=== PATIENT | female | born 1970 | race Hispanic/Latino ===

== ENCOUNTER 2017-08-19 21:23 | Emergency (ER) | payer OTHER ==
[2017-08-19 23:27] VITALS: RESP 17; O2SAT 98
[2017-08-20] MEDS ORDERED: Sodium Chloride 0.9% 1,000 ML IV SCH (00:15)
--- NOTE | 2017-08-20 00:16 | ED PDOC ---
HPI: Abdomen Time Seen by Provider: 08/20/17 00:13 Chief Complaint (Nursing): Abdominal Pain Chief Complaint (Provider): abdominal pain History Per: Patient (47 y/o female h/o DM here for evaluation of RUQ/ epigastric pain x 2 days associated with nausea/vomiting/diarrhea. Patient states she is on prilosec as a prophylactic measure but does not have any h/o ulcer/gastritis. No prior surgical hx.) Past Medical History Reviewed: Historical Data, Nursing Documentation, Vital Signs Vital Signs: Last Vital Signs Temp 98.1 F 08/20/17 06:18 Pulse 86 08/20/17 06:18 Resp 17 08/20/17 06:18 BP 144/85 08/20/17 06:18 Pulse Ox 98 08/21/17 03:42 - Medical History PMH: Diabetes - Family History Family History: States: No Known Family Hx - Home Medications Home Medications: Ambulatory Orders Medication Instructions Recorded Ondansetron ODT [Zofran ODT] 4 mg PO Q8 PRN #10 odt 08/20/17 - Allergies Allergies/Adverse Reactions: Allergies Allergy/AdvReac Type Severity Reaction Status Date / Time No Known Allergies Allergy Verified 08/19/17 23:27 Review of Systems ROS Statement: Except As Marked, All Systems Reviewed And Found Negative Gastrointestinal: Positive for: Abdominal Pain Physical Exam - Reviewed Nursing Documentation Reviewed: Yes Vital Signs Reviewed: Yes - Physical Exam Appears: Positive for: Well, Non-toxic, No Acute Distress Head Exam: Positive for: ATRAUMATIC, NORMAL INSPECTION, NORMOCEPHALIC Skin: Positive for: Normal Color, Warm, DRY Eye Exam: Positive for: EOMI, Normal appearance, PERRL ENT: Positive for: Normal ENT Inspection Neck: Positive for: Normal, Painless ROM Cardiovascular/Chest: Positive for: Regular Rate, Rhythm Respiratory: Positive for: CNT, Normal Breath Sounds Gastrointestinal/Abdominal: Positive for: Normal Exam, Bowel Sounds, Soft, Tenderness (RUQ/RLQ) Back: Positive for: Normal Inspection Extremity: Positive for: Normal ROM Neurologic/Psych: Positive for: Alert, Oriented - Laboratory Results Result Diagrams: 08/20/17 01:12 08/20/17 01:12 - ECG O2 Sat by Pulse Oximetry: 98 - Progress ED Course And Treament: dilaudid 0.5mg iv zofran 4mg iv x 1 dose NS 1 liter wide open Appendix: A normal appendix is identified. PELVIS: Bladder: The bladder is normal. Reproductive: The uterus is normal. ABDOMEN and PELVIS: Intraperitoneal space: Normal. No free air. No significant fluid collection. Bones/joints: No acute fracture. No dislocation. Soft tissues: Normal. Vasculature: Normal. No abdominal aortic aneurysm. Lymph nodes: Normal. No enlarged lymph nodes. IMPRESSION: 1. No acute abdominal pelvic pathology. Normal appendix. 2. Note that the gallbladder is incompletely evaluated with CT and if acute cholecystitis suspected a RIGHT upper quadrant ultrasound may be obtained for further evaluation. Thank you for allowing us to participate in the care of your patient. Dictated and Authenticated by: Ramez Pollock MD [facility] ultrasound: FINDINGS: Liver: Liver is echogenic appearance compatible with fatty liver. No intrahepatic bile duct dilation. Gallbladder: There is no cholelithiasis, stones, sludge or other gallbladder pathology. A negative sonographic Beltran sign is reported. Common bile duct: Unremarkable as visualized. No stones. No dilation. Pancreas: The pancreas is poorly-visualized due to overlying bowel gas. Right kidney: The RIGHT kidney measures 15 x 6.4 x 6.5 cm. No stones. No hydronephrosis. IMPRESSION: 1. Fatty liver. 2. No cholecystitis. Thank you for allowing us to participate in the care of your patient. Dictated and Authenticated by: Ramez Pollock MD 08/20/2017 2:41 AM Eastern Time ([place] & [place]) protonix 40 mg iv and bentyl 20 mg po ordered to assist with relief of persistent abd pain. 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 Seen by Dr. Zacarias. dilaudid 0.5mg iv x 2nd dose. Will repeat lactate after 2 Liters of hydration. Disposition - Clinical Impression Clinical Impression: Abdominal pain, Gastroenteritis - Patient ED Disposition Is Patient to be Admitted: No - Disposition Referrals: Titus Iraheta MD, PhD [Staff Provider] - Disposition: Routine/Home Disposition Time: 06:00 Condition: GOOD Prescriptions: Ondansetron ODT [Zofran ODT] 4 mg PO Q8 PRN #10 odt PRN Reason: Nausea/Vomiting Forms: [employer] ([place]), [facility] ED School/Work Excuse
[2017-08-20 01:19] LABS: BASO # 0.1 K/uL (0.0-0.2); BASO % 0.8 % (0.0-2.0); EOS # 0.1 K/uL (0.0-0.7); EOS % 1.8 % (0.0-4.0); HEMOGLOBIN 15.9 g/dL (12.0-16.0); LYMPH # 2.5 K/uL (1.0-4.3); LYMPH % 37.5 % (20.0-40.0); MEAN CELL VOLUME 84.7 fl (81.0-99.0); MEAN CORPUSCULAR HEMOGLOBIN 28.5 pg (27.0-31.0); MEAN CORPUSCULAR HGB CONC 33.7 g/dL (33.0-37.0); MEAN PLATELET VOLUME 7.9 fl (7.2-11.7); MONO # 0.6 K/uL (0.0-0.8); MONO % 8.8 % (0.0-10.0); NEUT # 3.4 K/uL (1.8-7.0); NEUT % 51.1 % (50.0-75.0); NRBC % 0.4 % (0.0-0.0); RBC 5.58 Mil/uL (3.80-5.20); WHITE BLOOD COUNT 6.6 K/uL (4.8-10.8)
[2017-08-20 01:28] LABS: ALB/GLOB RATIO 1.3 (1.0-2.1); ALBUMIN 4.3 g/dL (3.5-5.0); ALT/SGPT 79 U/L (9-52); AST/SGOT 48 U/L (14-36); BLOOD UREA NITROGEN 18 mg/dl (7-17); CALCIUM 10.2 mg/dL (8.4-10.2); GFR AFRICAN-AMERICAN > 60; GFR NON-AFRICAN AMERICAN > 60; LIPASE 79 U/L (23-300); MAGNESIUM 1.6 MG/DL (1.6-2.3)
[2017-08-20 01:33] LABS: VENOUS BLOOD GAS BASE EXCESS -0.3 mmol/L (0.0-2.0); VENOUS BLOOD GAS PCO2 38 mmHg (40-60); VENOUS BLOOD GAS PO2 47 mm/Hg (30-55); VENOUS BLOOD PH 7.41 (7.32-7.43)
[2017-08-20 01:35] LABS: SQUAMOUS EPITHIAL 3 /hpf (0-5); URINE BACTERIA RARE (<OCC); URINE BILIRUBIN NEGATIVE (NEGATIVE); URINE BLOOD NEGATIVE (NEGATIVE); URINE CLARITY CLOUDY (Clear); URINE COLOR AMBER (YELLOW); URINE GLUCOSE (UA) >=500 mg/dL (Normal); URINE LEUKOCYTE ESTERASE NEG Leu/uL (Negative); URINE NITRATE NEGATIVE (NEGATIVE); URINE PROTEIN 100 mg/dL (NEGATIVE)
[2017-08-20] MEDS ORDERED: Sodium Chloride 0.9% 50 ML IV ONE (01:47)
[2017-08-20] MEDS ORDERED: Iohexol 300 100 ML IJ ONE (01:47)
[2017-08-20] MEDS ORDERED: Sodium Chloride 0.9% 1,000 ML IV STA (02:43)
[2017-08-20 05:50] LABS: VENOUS BLOOD GAS BASE EXCESS -1.1 mmol/L (0.0-2.0); VENOUS BLOOD GAS PCO2 42 mmHg (40-60); VENOUS BLOOD GAS PO2 56 mm/Hg (30-55); VENOUS BLOOD PH 7.37 (7.32-7.43)
[2017-08-20 06:19] VITALS: BP 144/85; PULSE 86; TEMP 98.1
--- NOTE | 2017-08-20 09:56 | CT ---
PROCEDURE: CT scan abdomen pelvis dated 08/20/2017 HISTORY: Evaluate for cholecystitis/appendicitis COMPARISON: 95 cc Omnipaque [id number]. TECHNIQUE: Contiguous axial images of the abdomen and pelvis pelvis performed following oral and reformats generated. Radiation dose: Total exam DLP = 1154.427 mGy-cm. This CT exam was performed using one or more of the following dose reduction techniques: Automated exposure control, adjustment of the mA and/or kV according to patient size, and/or use of iterative reconstruction technique. FINDINGS: LOWER THORAX: The lung bases clear. No infiltrate effusion or basilar pneumothorax. LIVER: Liver is enlarged measuring over 21 cm in CC dimension. Moderate diffuse fatty hepatic infiltration. No obvious hepatic mass or collection. Portal and splenic veins are opacified. GALLBLADDER AND BILE DUCTS: Gallbladder is physiologically distended. No evidence intraluminal gallbladder calculi. No pericholecystic fluid collections. Apparent Phrygian cap. PANCREAS: The pancreas is atrophic and fatty replaced. No pancreatic mass collection or calcification. SPLEEN: Unremarkable. No splenomegaly. ADRENALS: There are no adrenal lesions. KIDNEYS AND URETERS: Kidneys demonstrate symmetric nephrograms. No evidence of nephrolithiasis or hydronephrosis. Minor infiltration changes seen in the perinephric fat bilaterally, nonspecific. There is a retro aortic renal vein BLADDER: Urinary bladder is incompletely distended which presumably accounts for thick-walled appearance. Possibility of a cystitis not excluded. REPRODUCTIVE: Uterus appears grossly unremarkable. APPENDIX: Normal-appearing appendix best seen on axial image number [id number]. BOWEL: Evaluation of the bowel is limited due to the lack of oral contrast material. Stomach is incompletely distended which presumably accounts for thick-walled appearance. Visualized loops of small bowel exhibit normal contour caliber. No evidence mechanical small bowel obstruction. Stool and air are seen throughout the large bowel. PERITONEUM: Unremarkable. No fluid collection. No free air. There is tiny fat containing umbilical hernia. LYMPH NODES: Unremarkable. No enlarged lymph nodes. VASCULATURE: Unremarkable. No aortic aneurysm. BONES: Minor multilevel degenerative spondylosis of the lower thoracic and lumbar spine. OTHER FINDINGS: None. IMPRESSION: No evidence of cholelithiasis. No evidence of acute appendicitis Hepatomegaly. Fatty infiltration.
--- NOTE | 2017-08-20 14:09 | US ---
HISTORY: Right upper quadrant pain, epigastric pain, flank pain, a 3 days of vomiting and 1 day of diarrhea. COMPARISON: August 20, 2017. CT abdomen and pelvis. None. TECHNIQUE: Sonographic evaluation of the right upper quadrant of the abdomen. FINDINGS: LIVER: Measures 21.2 cm in length. Hepatic steatosis. No focal masses. No intrahepatic bile duct dilatation or perihepatic ascites. echogenicity of the liver parenchyma. No mass. No intrahepatic bile duct dilatation. GALLBLADDER: Unremarkable. No gallstones. COMMON BILE DUCT: Measures 4.2 mm. No stones. No dilatation. PANCREAS: Obscured by overlying bowel gas. Non diagnostic assessment of the pancreas. RIGHT KIDNEY: Measures 6.4 x 15 cm in length. Normal echogenicity. No calculus, mass, or hydronephrosis. AORTA: No aneurysmal dilatation. IVC: Unremarkable. OTHER FINDINGS: None . IMPRESSION: Hepatomegaly/hepatic steatosis. No focal hepatic abnormalities. No acute findings related to/accounting for the clinical presentation.
== END 2017-08-20 06:18 | disposition home or self-care (01) ==
LOC: H.ER 21:23
DX: K52.9 Noninfective gastroenteritis and colitis, unspecified (principal); E11.9 Type 2 diabetes mellitus without complications; K76.0 Fatty (change of) liver, not elsewhere classified
CPT/HCPCS: 74177; 76705; 80053; 81003; 81025; 82803; 82948; 83690; 83735; 84484; 85025; 87086; 96361; 96374; 96375; 96376; 99282; J1170; J2405; J7040; Q9967